=== PATIENT | female | born 1985 | race Caucasian/White ===

== ENCOUNTER 2020-06-04 09:30 | Outpatient (CLI) | payer OTHER | END 2020-06-04 23:59 | disposition home or self-care (01) | LOC: COV 09:30 | PROVIDERS: ATTEND Family Medicine | DX: Z20.822 Contact with and (suspected) exposure to COVID-19 (principal) ==

== ENCOUNTER 2022-03-17 14:26 | Outpatient (CLI) | payer OTHER ==
[2022-03-20 10:09] LABS: HSV 2 IGG SUPPLEMENTAL TEST Positive (Negative); HSV 2 IGG TYPE SPEC 2.56 index (0.00-0.90)
== END 2022-03-17 14:27 | disposition home or self-care (01) ==
LOC: LAB.S 14:26
PROVIDERS: ATTEND Registered Nurse
DX: R21 Rash and other nonspecific skin eruption (principal)
CPT/HCPCS: 36415; 86695; 86696

== ENCOUNTER 2023-03-01 08:00 | Outpatient (CLI) | payer OTHER ==
--- NOTE | 2023-03-02 09:04 | XRAY Report ---
PROCEDURE: Hand 2 View BILAT INDICATIONS: FINGER MASS OF 2ND DIGIT OF RIGHT FINGER TECHNIQUE: 2 views of the hand(s) acquired. COMPARISON: None. FINDINGS: Bones: No fractures or dislocations. No suspicious bony lesions. Soft tissues: No suspicious soft tissue calcifications or masses. IMPRESSION: No acute radiographic abnormality in the region of concern. Consider sonographic evaluation. Reviewed by: Geovany Lara on 03/02/2023 9:03 AM PDT Approved by: Geovany Lara on 03/02/2023 9:03 AM PDT Station ID: [id number]
== END 2023-03-01 23:59 | disposition home or self-care (01) ==
LOC: DI.S 08:00
PROVIDERS: ATTEND Registered Nurse
DX: M47.9 Spondylosis, unspecified (principal); R22.31 Localized swelling, mass and lump, right upper limb